=== PATIENT | female | born 1985 | race Caucasian/White ===

== ENCOUNTER 2016-09-06 10:54 | Emergency (ER) | payer BC ==
[~2016-09-06] VITALS: Ht 165.1 cm; Wt 126.0 kg
[2016-09-06 13:33] LABS: EOSINOPHIL (%) 1.1 % (0-5); EOSINOPHIL COUNT 0.1 K/uL (0-0.3); HEMATOCRIT 43.3 % (36.0-46.0); IMMATURE GRANULOCYTE (%) 0.2 % (0.0-0.7); INSTRUMENT ABS NEUTROPHIL CT 6.6 K/uL; MCH 25.1 PG (29.0-34.0); MCHC 30.7 G/DL (30.0-36.0); MCV 81.7 FL (83-99); MONOCYTE (%) 5.5 % (3-12); MONOCYTE COUNT 0.5 K/uL (0-0.8); NEUTROPHIL (%) 71.5 % (45-76); NEUTROPHIL COUNT 6.6 K/uL (1.8-6.4); PLATELET COUNT 238 K/uL (156-360); RBC DIS.WIDTH-CV 13.2 % (11.8-14.6); RBC DIS.WIDTH-SD 38.8 % (39-53); WHITE BLOOD COUNT 9.2 K/uL (4.1-10.2)
[2016-09-06 13:50] LABS: D-DIMER ELISA 0.24 mg/L FEU (< 0.57); PROTHROMBIN TIME 10.3 (9.2-11.2); PTT 27.5 (25-32)
[2016-09-06 13:51] LABS: CHLORIDE 106 mEq/L (99-109); POTASSIUM 4.3 mEq/L (3.7-5.4); SODIUM 137 mEq/L (136-147)
[2016-09-06 13:53] LABS: GLUCOSE 91 mg/dL (70-99)
[2016-09-06 13:54] LABS: ANION GAP 5 MEQ/L (2-14)
[2016-09-06 13:57] LABS: GFR ESTIMATE (CALCULATED) > 59 mL/min/
[2016-09-06 13:58] LABS: UREA NITROGEN (BUN) 8 mg/dL (9-23)
[2016-09-06 14:04] LABS: TROP-I INTERPRETATION NEGATIVE; TROPONIN-I < 0.01 ng/mL (0.0-0.30)
[2016-09-06 14:07] LABS: QUANTITATIVE HCG < 4.0 MIU/ML
[2016-09-06 16:05] LABS: TROP-I INTERPRETATION NEGATIVE; TROPONIN-I < 0.01 ng/mL (0.0-0.30)
[2016-09-06 17:16] VITALS: BP 106/72
== END 2016-09-06 17:23 | disposition home or self-care (01) ==
LOC: EME 10:54
PROVIDERS: Emergency Medicine
DX: R06.00 Dyspnea, unspecified (principal)
CPT/HCPCS: 71010; 71275; 80048; 83880; 84484; 84702; 85025; 85379; 85610; 85730; 93005; 99281; 99285